=== PATIENT | male | born 1970 | race Asian ===

== ENCOUNTER 2019-09-03 15:40 | Observation (INO) | payer OTHER ==
--- NOTE | 2019-09-03 17:13 | Emergency Department Report ---
Chief Complaint: Chest Pain Stated Complaint: HBP/VOMITING/DIZZINESS Time Seen by Provider: 09/03/19 17:12 - HPI History of Present Illness: 49 y/o male p/w dizzyness, cp found to have right sided SOM Feels like right eye is not at its anatomic baseline. Right eye has trouble AB ducting past midline. Accu-Chek within normal limits. Also receiving physical therapy for DJD/musculoskeletal pain in the cervical spine. code stroke called over head nih 0 at this time Not a TPA candidate given low NIH score. Would consider CT angiogram head and neck to exclude posterior circulation dissection. Arch of aorta will also be visualized, therefore, in the unlikely event that the patient is experiencing an aortic dissection, this should be visualized. Vital Signs 09/03/19 17:13 Temperature 97.5 F L Pulse Rate 87 Respiratory 18 Rate Blood Pressure 167/109 O2 Sat by Pulse 100 Oximetry MSE screening note: Focused history and physical exam performed. Due to findings the following was ordered: ED Disposition for MSE Condition: Stable
--- NOTE | 2019-09-03 17:34 | Emergency Department Report ---
ED Neuro Deficit HPI - General Chief Complaint: Chest Pain Stated Complaint: HBP/VOMITING/DIZZINESS Time Seen by Provider: 09/03/19 17:12 Source: patient Mode of arrival: Wheelchair Limitations: No Limitations - History of Present Illness Initial Comments: [facility] Date of Service: 09/03/2019 17:14:30 Impression: RO Acute Ischemic Stroke Comments: the patient has had fluctuating sentences lightheadedness and vertigo since 8 AM in the context of hypertension. Diastolic is particularly high. At the present moment he has no focal symptoms or deficit. Differential includes hypertensive urgency, cardiac etiology, TIA. Metrics: Last Known Well: 09/03/2019 15:30:00 [facility] Notification Time: 09/03/2019 17:13:37 Arrival Time: 09/03/2019 15:40:00 Stamp Time: 09/03/2019 17:14:30 Time First Login Attempt: 09/03/2019 17:19:48 Video Start Time: 09/03/2019 17:19:48 Symptoms: light headedness NIHSS Start Assessment Time: 09/03/2019 17:22:29 Patient is not a candidate for tPA. Patient was not deemed candidate for tPA thrombolytics because of Resolved symptoms. Video End Time: 09/03/2019 17:31:42 CT head showed no acute hemorrhage or acute core infarct. Presentation is not suggestive of Large Vessel Occlusive disease. Advanced imaging was not obtained as the presentation was not suggestive of Large Vessel Occlusive Disease. ED Physician notified of diagnostic impression and management plan on 09/03/2019 17:31:44 Our recommendations are outlined below. Recommendations: Activate Stroke Protocol Admission/Order Set Stroke/Telemetry Floor Neuro Checks Bedside Swallow Eval DVT Prophylaxis IV Fluids, Normal Saline Head of Bed Below 30 Degrees Euglycemia and Avoid Hyperthermia (PRN Acetaminophen) Initiate Aspirin 325 MG Daily Recommended Scan: MRI Head Carotid Dopplers Echocardiogram - Transthoracic Echocardiogram Lipid Panel to Be Obtained, if Not Done in the Last Three Months Therapies: Physical Therapy, Occupational Therapy, Speech Therapy Assessment When Applicable Dysphaghia Screen: Swallow Evaluation, Bedside NPO Until Swallow Evaluation DVT prophylaxis: Choice of Primary Team Disposition: Follow up with Teleneurology Follow up Sign Out: Discussed with Emergency Department Provider History of Present Illness: Patient is a 49 year old Male. Patient was brought by private transportation with symptoms of light headedness He came in for a physical therapy appointment then became hot woosy and with some CP and was told his BP was really high. Has hx neck shoulder pain which is why he was getting PT. Takes asa 81 daily. He had vertigo that has since resolved. Since 8 am has had off and on vetigo with recurrence of symptoms at 15:30. CT head showed no acute hemorrhage or acute core infarct. Examination: BP(146/115), 1A: Level of Consciousness - Alert; keenly responsive + 0 1B: Ask Month and Age - Both Questions Right + 0 1C: Blink Eyes & Squeeze Hands - Performs Both Tasks + 0 2: Test Horizontal Extraocular Movements - Normal + 0 3: Test Visual Banuelos - No Visual Loss + 0 4: Test Facial Palsy (Use Grimace if Obtunded) - Normal symmetry + 0 5A: Test Left Arm Motor Drift - No Drift for 10 Seconds + 0 5B: Test Right Arm Motor Drift - No Drift for 10 Seconds + 0 6A: Test Left Leg Motor Drift - No Drift for 5 Seconds + 0 6B: Test Right Leg Motor Drift - No Drift for 5 Seconds + 0 7: Test Limb Ataxia (FNF/Heel-Adhikari) - No Ataxia + 0 8: Test Sensation - Normal; No sensory loss + 0 9: Test Language/Aphasia - Normal; No aphasia + 0 10: Test Dysarthria - Normal + 0 11: Test Extinction/Inattention - No abnormality + 0 NIHSS Score: 0 Patient was informed the Neurology Consult would happen via TeleHealth consult by way of interactive audio and video telecommunications and consented to receiving care in this manner. Due to the immediate potential for life-threatening deterioration due to underlying acute neurologic illness, I spent 35 minutes providing critical care. This time includes time for face to face visit via telemedicine, review of medical records, imaging studies and discussion of findings with providers, the patient and/or family. Dr Ileana Tomlinson [facility] - Related Data Allergies/Adverse Reactions: Allergies Allergy/AdvReac Type Severity Reaction Status Date / Time No Known Allergies Allergy Unverified 09/03/19 15:57 ED Review of Systems ROS: Stated complaint: HBP/VOMITING/DIZZINESS Other details as noted in HPI ED Past Medical Hx - Past Medical History Previous Medical History?: Yes Hx Hypertension: Yes Hx Arthritis: (DDD, DJD) - Surgical History Past Surgical History?: No - Social History Smoking Status: Never Smoker Substance Use Type: None ED Neuro Physical Exam - General Limitations: No Limitations Suspected Stroke: Yes - NIHSS Assessment Interval: Baseline 1a. Level of Consciousness: alert/keenly responsive 1b. LOC Questions: answers both correctly 1c. LOC Commands: performs tasks correctly 2. Best Gaze: normal 3. Visual: no visual loss 4. Facial Palsy: normal symmetrical movement 5b. Motor Arm Right: no drift 5a. Motor Arm Left: no drift 6a. Motor Leg Left: no drift 6b. Motor Leg Right: no drift 7. Limb Ataxia: absent 8. Sensory: normal 9. Best Language: no aphasia 10. Dysarthria: normal 11. Extinction/Inattention: no abnormality Total Score: 0 Stroke Severity: No Stroke Symptoms ED Course Vital Signs 09/03/19 17:13 Temperature 97.5 F L Pulse Rate 87 Respiratory 18 Rate Blood Pressure 167/109 O2 Sat by Pulse 100 Oximetry - Lab Data Lab Results 09/03/19 Range/Units 17:25 POC Glucose 111 H (70-105) Critical care attestation.: If time is entered above; I have spent that time in minutes in the direct care of this critically ill patient, excluding procedure time. ED Disposition Clinical Impression: TIA (transient ischemic attack) Disposition: OP ADMIT IP TO THIS HOSP Is pt being admited?: Yes Does the pt Need Aspirin: Yes Condition: Stable
--- NOTE | 2019-09-03 17:37 | Emergency Department Report ---
ED Chest Pain HPI - General Chief Complaint: Chest Pain Stated Complaint: HBP/VOMITING/DIZZINESS Time Seen by Provider: 09/03/19 17:20 Source: patient Mode of arrival: Wheelchair Limitations: No Limitations - History of Present Illness Initial Comments: She is a 49-year-old male that presents emergency room with complaints of dizziness, chest pain, nausea and shortness of breath. Patient states his symptoms started at 1530. Patient states that he has a history of hypertension. Patient states his chest pain is a 2 out of 10 and is a pressure. Patient states in the center of his chest and nonradiating. Patient states his shortness of breath and chest pain are better with rest and worse with exertion. Patient states all his symptoms started during exertion and have dramatically improved with rest. MD Complaint: chest pain -: Sudden Onset: during exertion Pain Location: substernal, left chest Pain Radiation: none Severity scale (0 -10): 2 Quality: pressure Consistency: constant Improves With: rest Worsens With: exertion re: nausea, dyspnea, other Other Symptoms: other. denies: cough, fever, syncope, rash, acid taste in mouth, leg swelling, palpitations, burping Treatments Prior to Arrival: none Aspirin use within the Past 7 Days: (1) Yes - Related Data On Oral Contraceptives: No Home Medications Medication Instructions Recorded Confirmed Last Taken Cyclobenzaprine [Flexeril 10 MG 2 tab PO DAILY 09/03/19 09/03/19 Unknown TAB] Fenofibrate Nanocrystallized 1 tab PO DAILY 09/03/19 09/03/19 Unknown [Fenofibrate] carvediloL [Coreg] 1 tab PO BID 09/03/19 09/03/19 Unknown hydroCHLOROthiazide [HCTZ] 1 tab PO DAILY 09/03/19 09/03/19 Unknown lisinopriL [Zestril TAB] 1 tab PO BID 09/03/19 09/03/19 Unknown Allergies Allergy/AdvReac Type Severity Reaction Status Date / Time No Known Allergies Allergy Verified 09/03/19 21:26 Heart Score - HEART Score History: Moderately suspicious EKG: Non-specific Age: 45-65 Risk factors: No known risk factors Troponin: < normal limit HEART Score: 3 ED Review of Systems ROS: Stated complaint: HBP/VOMITING/DIZZINESS Other details as noted in HPI Constitutional: denies: chills, fever Eyes: denies: eye pain, eye discharge, vision change ENT: denies: ear pain, throat pain Respiratory: shortness of breath. denies: cough, wheezing Cardiovascular: chest pain. denies: palpitations Endocrine: no symptoms reported Gastrointestinal: nausea. denies: abdominal pain, diarrhea Genitourinary: denies: urgency, dysuria Musculoskeletal: denies: back pain, joint swelling, arthralgia Skin: denies: rash, lesions Neurological: as per HPI, other. denies: headache, weakness, paresthesias Psychiatric: denies: anxiety, depression Hematological/Lymphatic: denies: easy bleeding, easy bruising ED Past Medical Hx - Past Medical History Previous Medical History?: Yes Hx Hypertension: Yes Hx Arthritis: (DDD, DJD) - Surgical History Past Surgical History?: No - Family History Family history: no significant - Social History Smoking Status: Never Smoker Substance Use Type: None - Medications Home Medications: Home Medications Medication Instructions Recorded Confirmed Last Taken Type Cyclobenzaprine [Flexeril 10 MG 2 tab PO DAILY 09/03/19 09/03/19 Unknown History TAB] Fenofibrate Nanocrystallized 1 tab PO DAILY 09/03/19 09/03/19 Unknown History [Fenofibrate] carvediloL [Coreg] 1 tab PO BID 09/03/19 09/03/19 Unknown History hydroCHLOROthiazide [HCTZ] 1 tab PO DAILY 09/03/19 09/03/19 Unknown History lisinopriL [Zestril TAB] 1 tab PO BID 09/03/19 09/03/19 Unknown History ED Physical Exam - General Limitations: No Limitations General appearance: alert, in no apparent distress - Head Head exam: Present: atraumatic, normocephalic - Eye Eye exam: Present: normal appearance - ENT ENT exam: Present: mucous membranes moist - Neck Neck exam: Present: normal inspection - Respiratory Respiratory exam: Present: normal lung sounds bilaterally. Absent: respiratory distress, wheezes - Cardiovascular Cardiovascular Exam: Present: regular rate, normal rhythm. Absent: systolic murmur, diastolic murmur, rubs, gallop - GI/Abdominal GI/Abdominal exam: Present: soft, normal bowel sounds - Rectal Rectal exam: Present: deferred - Extremities Exam Extremities exam: Present: normal inspection - Back Exam Back exam: Present: normal inspection - Neurological Exam Neurological exam: Present: alert, oriented X3 - Psychiatric Psychiatric exam: Present: normal affect, normal mood - Skin Skin exam: Present: warm, dry, intact, normal color. Absent: rash ED Course Vital Signs 09/03/19 09/03/19 09/03/19 17:13 17:24 17:57 Temperature 97.5 F L Pulse Rate 87 93 H Respiratory 18 18 18 Rate Blood Pressure 167/109 Blood Pressure 146/115 [Left] O2 Sat by Pulse 100 97 100 Oximetry 09/03/19 09/03/19 09/03/19 18:00 19:00 20:20 Temperature 98.3 F Pulse Rate 91 H 89 94 H Respiratory 18 18 14 Rate Blood Pressure Blood Pressure 161/108 135/74 137/99 [Left] O2 Sat by Pulse 97 97 97 Oximetry 09/03/19 09/03/19 09/03/19 20:30 21:00 21:30 Temperature Pulse Rate 84 79 77 Respiratory 16 14 14 Rate Blood Pressure 139/94 143/95 138/93 Blood Pressure [Left] O2 Sat by Pulse 98 98 97 Oximetry 09/03/19 09/03/19 09/03/19 22:00 22:30 22:40 Temperature Pulse Rate 95 H 83 85 Respiratory 16 16 14 Rate Blood Pressure 135/96 135/91 135/91 Blood Pressure [Left] O2 Sat by Pulse 96 96 98 Oximetry 09/03/19 09/03/19 09/03/19 22:50 23:00 23:10 Temperature Pulse Rate 87 79 82 Respiratory 17 16 19 Rate Blood Pressure 135/91 146/107 146/107 Blood Pressure [Left] O2 Sat by Pulse 97 97 99 Oximetry 09/03/19 23:20 Temperature Pulse Rate 81 Respiratory 17 Rate Blood Pressure 146/107 Blood Pressure [Left] O2 Sat by Pulse 98 Oximetry - Reevaluation(s) Reevaluation #1: Initial evaluation done. I discussed case with neurologist. Patient states his pain is improving. 09/03/19 17:37 - Consultations Consultation #1: I discussed case with our stroke team, neurology. Neurology does not recommend TPA. 09/03/19 17:31 Consultation #2: Hospitalist consultation for admission. Hospitalist to admit patient. 09/03/19 19:23 AMANDA score - Amanda Score Age > 65: (0) No (v) Aspirin use within the Past 7 Days: (1) Yes 3 or more CAD Risk Factors: (0) No 2 or more Angina events in past 24 hrs: (0) No Known CAD with more than 50% Stenosis: (0) No Elevated Cardiac Markers: (0) No ST Deviation Greater than 0.5mm: (0) No AMANDA Score: 1 ED Medical Decision Making - Lab Data Result diagrams: 09/03/19 17:52 09/03/19 19:31 - EKG Data -: EKG Interpreted by Me EKG shows normal: sinus rhythm, axis, intervals, QRS complexes, ST-T waves Rate: normal - Radiology Data Radiology results: report reviewed, image reviewed interpreted by me: No acute findings on chest x-ray. CT head/brain wo con INDICATION / CLINICAL INFORMATION: 49 years Male; Stroke symptoms. TECHNIQUE: Routine CT head without contrast. All CT scans at this location are performed using CT dose reduction for ALARA by means of automated exposure control. COMPARISON: None. FINDINGS: BRAIN / INTRACRANIAL CONTENTS: The brain appears to demonstrate appropriate attenuation for age. The ventricular system is within normal limits in size and configuration. The motion degrades image quality. However, there is no clear CT evidence of acute intracranial hemorrhage or significant mass effect. ORBITS: No significant abnormality of visualized orbits. SINUSES / MASTOIDS: No significant abnormality the visualized paranasal sinuses or mastoid air cells. CRANIOCERVICAL JUNCTION: No significant abnormality. ADDITIONAL FINDINGS: None. IMPRESSION: 1. There is no CT evidence of acute intracranial process. - Medical Decision Making H and is a 49-year-old L the patient's marginal complaints of dizziness, chest pain, shortness of breath and nausea. Patient's symptoms started while he was exerting himself physical therapy. Patient's blood pressure also went up. Patient's symptoms improved with rest. Due the patient's dizziness and symptoms a code stroke was called in triage. Neurology saw the patient. Patient's head CT is negative. Patient's labs unremarkable. Patient given aspirin immediately upon arrival due to his chest pain complaints. Patient will require admission for further evaluation and treatment. Patient will require an MRI for his possible TIA. - Differential Diagnosis TIA, ACS, CP, SOB, Critical Care Time: Yes Critical care time in (mins) excluding proc time.: 45 Critical care attestation.: If time is entered above; I have spent that time in minutes in the direct care of this critically ill patient, excluding procedure time. Critical Care Time: 45 minutes ED Disposition Clinical Impression: TIA (transient ischemic attack), Dizziness, SOB (shortness of breath) Chest pain Qualifiers: Chest pain type: unspecified Qualified Code(s): R07.9 - Chest pain, unspecified Disposition: 09 OP ADMIT IP TO THIS HOSP Is pt being admited?: Yes Does the pt Need Aspirin: No Condition: Good Time of Disposition: 21:00 - Assessment Assessment Interval: Baseline - Level of Consciousness 1a. Level of Consciousness: alert/keenly responsive - LOC Questions 1b. LOC Questions: answers both correctly - LOC Command 1c. LOC Commands: performs tasks correctly - Best Gaze 2. Best Gaze: normal - Visual 3. Visual: no visual loss - Facial Palsy 4. Facial Palsy: normal symmetrical movement - Motor Arm 5a. Motor Arm Left: no drift 5b. Motor Arm Right: no drift - Motor Leg 6a. Motor Leg Left: no drift 6b. Motor Leg Right: no drift - Limb Ataxia 7. Limb Ataxia: absent - Sensory 8. Sensory: normal - Best Language 9. Best Language: no aphasia - Dysarthria 10. Dysarthria: normal - Extinction and Inattention 11. Extinction/Inattention: no abnormality - Scoring Total Score: 0 Stroke Severity: No Stroke Symptoms
--- NOTE | 2019-09-03 17:43 | Cat Scan Report ---
CT head/brain wo con INDICATION / CLINICAL INFORMATION: 49 years Male; Stroke symptoms. TECHNIQUE: Routine CT head without contrast. All CT scans at this location are performed using CT dos e reduction for ALARA by means of automated exposure control. COMPARISON: None. FINDINGS: BRAIN / INTRACRANIAL CONTENTS: The brain appears to demonstrate appropriate attenuation for age. The ventricular system is within normal limits in size and configuration. The motion degrades image quali ty. However, there is no clear CT evidence of acute intracranial hemorrhage or significant mass effec t. ORBITS: No significant abnormality of visualized orbits. SINUSES / MASTOIDS: No significant abnormality the visualized paranasal sinuses or mastoid air cells. CRANIOCERVICAL JUNCTION: No significant abnormality. ADDITIONAL FINDINGS: None. IMPRESSION: 1. There is no CT evidence of acute intracranial process. The study was specified as code stroke and called emergently to Dr. Martinez in the ER at 4:35 PM Deandra tra standard time. Signer Name: Paulie Pacheco MD Signed: 09/03/2019 5:38 PM Workstation Name: [id number]
[2019-09-03 18:07] LABS: Basophils % (Auto) 0.3 % (0.0-1.8); Eosinophils # (Auto) 0.2 K/mm3 (0.0-0.4); Eosinophils % (Auto) 1.5 % (0.0-4.3); Hematocrit 40.4 % (35.5-45.6); Hemoglobin 13.6 gm/dl (11.8-15.2); Lymphocytes # (Auto) 1.5 K/mm3 (1.2-5.4); Lymphocytes % (Auto) 15.6 % (13.4-35.0); Mean Corpuscular HGB Conc 34 % (32-34); Mean Corpuscular Volume 83 fl (84-94); Monocytes # (Auto) 0.5 K/mm3 (0.0-0.8); Monocytes % (Auto) 4.7 % (0.0-7.3); Platelet Count 296 K/mm3 (140-440); Red Blood Count 4.85 M/mm3 (3.65-5.03); Red Cell Distribution Width 14.6 % (13.2-15.2)
[2019-09-03 18:24] LABS: Creatine Kinase MB 1.2 ng/mL (0.0-4.0)
[2019-09-03 18:38] LABS: INR 0.96 (0.87-1.13)
[2019-09-03] MEDS ORDERED: ASPIRIN 325 MG TAB PO ONE (19:03)
--- NOTE | 2019-09-03 19:03 | XRay Report ---
CHEST 1 VIEW 6:43 PM INDICATION / CLINICAL INFORMATION: Chest pain. COMPARISON: None available. FINDINGS: SUPPORT DEVICES: None. HEART / MEDIASTINUM: The heart size and pulmonary vasculature are normal. The aorta is normal in iram toña. LUNGS / PLEURA: No significant pulmonary or pleural abnormality. No pneumothorax. ADDITIONAL FINDINGS: No significant additional findings. IMPRESSION: No acute findings. Signer Name: Pietro Powell MD Signed: 09/03/2019 6:58 PM Workstation Name: [id number]
[2019-09-03] MEDS ORDERED: MORPHINE 2 MG/1 ML INJ IV ONE (19:04)
[2019-09-03 20:34] LABS: Alanine Aminotransferase 40 units/L (7-56); Albumin 4.1 g/dL (3.9-5); BUN/Creatinine Ratio 12; Blood Urea Nitrogen 11 mg/dL (9-20); Calcium 9.8 mg/dL (8.4-10.2); Hemolysis Index 2
[2019-09-03] MEDS ORDERED: ACETAMINOPHEN 325 MG TAB PO PRN (21:12)
[2019-09-03] MEDS ORDERED: ONDANSETRON 4 MG/2 ML INJ IV PRN (21:12)
[2019-09-03] MEDS ORDERED: NITROGLYCERIN 0.4 MG TAB SUBL SL PRN (21:15)
[2019-09-03] MEDS ORDERED: hydrALAZINE 20 MG/1 ML INJ IV PRN (21:15)
--- NOTE | 2019-09-03 21:36 | History and Physical Report ---
History of Present Illness Date of examination: 09/03/19 Date of admission: 09/03/2019 Chief complaint: Chest pain History of present illness: Patient is a 49-year-old male with a past medical history of hypertension and chronic pain who presents to ER with complaints of chest pain. Patient reports he arrived at physical therapy this am and reports onset of sweats, after taking his vitals he was brought down to the emergency room with an elevated blood pressure, and code stroke was called on his arrival. Patient was seen and evaluated by tele neurology. Patient reports his chest pain is 4 out of 10, without radiation and accompanied by nausea, sweats and dizziness. His chest pain is better with rest, and exacerbated with exertion during therapy. He denies pain, n/v during assessment. Past History Past Medical History: hypertension Past Surgical History: Other Social history: , lives with family Family history: CAD, cancer, diabetes Medications and Allergies Allergies Allergy/AdvReac Type Severity Reaction Status Date / Time No Known Allergies Allergy Verified 09/03/19 21:26 Home Medications Medication Instructions Recorded Confirmed Last Taken Type Cyclobenzaprine [Flexeril 10 MG 2 tab PO DAILY 09/03/19 09/03/19 Unknown History TAB] Fenofibrate Nanocrystallized 1 tab PO DAILY 09/03/19 09/03/19 Unknown History [Fenofibrate] carvediloL [Coreg] 1 tab PO BID 09/03/19 09/03/19 Unknown History hydroCHLOROthiazide [HCTZ] 1 tab PO DAILY 09/03/19 09/03/19 Unknown History lisinopriL [Zestril TAB] 1 tab PO BID 09/03/19 09/03/19 Unknown History Active Meds: Active Medications Acetaminophen (Tylenol) 650 mg PO Q4H PRN PRN Reason: Pain MILD(1-3)/Fever >100.5/MORATAYA Aspirin (Ecotrin) 325 mg PO QDAY ANGEL Atorvastatin Calcium (Lipitor) 40 mg PO QHS ANGEL Bisacodyl (Dulcolax) 10 mg [place] QDAY PRN PRN Reason: Constipation Hydralazine HCl (Apresoline) 10 mg IV ONCE PRN PRN Reason: Hypertension Sodium Chloride (Nacl 0.9% 1000 Ml) 1,000 mls @ 125 mls/hr IV DIRECT ANGEL Morphine Sulfate (Morphine) 2 mg IV Q4H PRN PRN Reason: Pain, Moderate (4-6) Nitroglycerin (Nitrostat) 0.4 mg SL .Q5MIN PRN PRN Reason: Chest Pain Ondansetron HCl (Zofran) 4 mg IV Q8H PRN PRN Reason: Nausea And Vomiting Review of Systems All systems: negative Cardiovascular: chest pain, lightheadedness, high blood pressure Neurological: headaches Exam - Physical Exam Narrative exam: - Physical Exam Narrative exam: General appearance: Present: No distress noted - EENT Eyes: Present: PERRL ENT: hearing intact, clear oral mucosa - Neck Neck: Present: supple, normal ROM - Respiratory Respiratory effort: normal Respiratory: bilateral: Clear to auscultation - Cardiovascular Heart rate:84 Heart Sounds: Present: S1 & S2. Absent: rub, click - Extremities Extremities: pulses symmetrical, No edema Peripheral Pulses: within normal limits - Abdominal General gastrointestinal: Present: , non-distended, normal bowel sounds genitourinary: Present: normal - Integumentary Integumentary: Present: clear, warm, dry - Musculoskeletal Musculoskeletal: gait normal, strength equal bilaterally - Psychiatric Psychiatric: appropriate mood/affect, intact judgment & insight - Neurologic Neurologic: CNII-XII intact, moves all extremities - Constitutional Vitals: Temp Pulse Resp BP Pulse Ox 98.3 F 77 14 138/93 97 09/03/19 20:20 09/03/19 21:30 09/03/19 21:30 09/03/19 21:30 09/03/19 21:30 AMANDA score - Amanda Score Age > 65: (0) No (v) Aspirin use within the Past 7 Days: (1) Yes 3 or more CAD Risk Factors: (0) No 2 or more Angina events in past 24 hrs: (0) No Known CAD with more than 50% Stenosis: (0) No Elevated Cardiac Markers: (0) No ST Deviation Greater than 0.5mm: (0) No AMANDA Score: 1 Results - Labs CBC & Chem 7: 09/03/19 17:52 09/03/19 19:31 Labs: Laboratory Last Values WBC 9.9 K/mm3 (4.5-11.0) 09/03/19 17:52 RBC 4.85 M/mm3 (3.65-5.03) 09/03/19 17:52 Hgb 13.6 gm/dl (11.8-15.2) 09/03/19 17:52 Hct 40.4 % (35.5-45.6) 09/03/19 17:52 MCV 83 fl (84-94) L 09/03/19 17:52 MCH 28 pg (28-32) 09/03/19 17:52 MCHC 34 % (32-34) 09/03/19 17:52 RDW 14.6 % (13.2-15.2) 09/03/19 17:52 Plt Count 296 K/mm3 (140-440) 09/03/19 17:52 Lymph % (Auto) 15.6 % (13.4-35.0) 09/03/19 17:52 [place] % (Auto) 4.7 % (0.0-7.3) 09/03/19 17:52 Eos % (Auto) 1.5 % (0.0-4.3) 09/03/19 17:52 Baso % (Auto) 0.3 % (0.0-1.8) 09/03/19 17:52 Lymph # 1.5 K/mm3 (1.2-5.4) 09/03/19 17:52 [place] # 0.5 K/mm3 (0.0-0.8) 09/03/19 17:52 Eos # 0.2 K/mm3 (0.0-0.4) 09/03/19 17:52 Baso # 0.0 K/mm3 (0.0-0.1) 09/03/19 17:52 Seg Neutrophils % 77.9 % (40.0-70.0) H 09/03/19 17:52 Seg Neutrophils # 7.7 K/mm3 (1.8-7.7) 09/03/19 17:52 PT 12.9 Sec. (12.2-14.9) 09/03/19 17:52 INR 0.96 (0.87-1.13) 09/03/19 17:52 APTT 24.0 Sec. (24.2-36.6) L 09/03/19 17:52 Thrombin Time 17.0 Sec. (15.1-19.6) 09/03/19 17:52 Sodium 142 mmol/L (137-145) 09/03/19 19:31 Potassium 3.6 mmol/L (3.6-5.0) 09/03/19 19:31 Chloride 103.7 mmol/L (98-107) 09/03/19 19:31 Carbon Dioxide 21 mmol/L (22-30) L 09/03/19 19:31 Anion Gap 21 mmol/L 09/03/19 19:31 BUN 11 mg/dL (9-20) 09/03/19 19:31 Creatinine 0.9 mg/dL (0.8-1.5) 09/03/19 19:31 Estimated GFR > 60 ml/min 09/03/19 19:31 BUN/Creatinine Ratio 12 % 09/03/19 19:31 Glucose 141 mg/dL (75-100) H 09/03/19 19:31 POC Glucose 134 (70-105) H 09/03/19 17:42 Calcium 9.8 mg/dL (8.4-10.2) 09/03/19 19:31 Total Bilirubin 0.40 mg/dL (0.1-1.2) 09/03/19 19:31 AST 21 units/L (5-40) 09/03/19 19:31 ALT 40 units/L (7-56) 09/03/19 19:31 Alkaline Phosphatase 73 units/L (35-129) 09/03/19 19:31 Total Creatine Kinase 108 units/L (55-170) 09/03/19 17:52 CK-MB (CK-2) 1.2 ng/mL (0.0-4.0) 09/03/19 17:52 CK-MB (CK-2) Rel Index 1.1 (0-4) 09/03/19 17:52 Troponin T < 0.010 ng/mL (0.00-0.029) 09/03/19 17:52 Total Protein 7.7 g/dL (6.3-8.2) 09/03/19 19:31 Albumin 4.1 g/dL (3.9-5) 09/03/19 19:31 Albumin/Globulin Ratio 1.1 % 09/03/19 19:31 Plasma/Serum Alcohol < 0.01 % (0-0.07) 09/03/19 17:52 - Imaging and Cardiology EKG: report reviewed (Sinus rhythm) Chest x-ray: report reviewed (IMPRESSION: No acute findings.) CT Scan - head: report reviewed (There is no CT evidence of acute intracranial process.) Assessment and Plan Assessment and plan: Acute Chest Pain -C/o chest pain without radiation -Initiate chest pain protocol -Continuous telemetry monitoring -Continue supportive care -Pain mgmt -EKG unrevealing for acute ischemic abnormalities -Cardiology consulted R/O TIA -CT Head negative -Tele-Neurology consulted; recommendations appreciated -MRI brain pending -Neuro Checks -Lipid panel pending -Continue statin -Neurology consulted HTN -Monitor BP -Resume home meds once reconciled DVT PPX -pt ambulatory -heparin ppx Advance Directives: No VTE prophylaxis?: Chemical
[2019-09-04 05:34] LABS: Basophils % (Auto) 0.5 % (0.0-1.8); Eosinophils # (Auto) 0.2 K/mm3 (0.0-0.4); Eosinophils % (Auto) 2.9 % (0.0-4.3); Hematocrit 38.7 % (35.5-45.6); Hemoglobin 13.1 gm/dl (11.8-15.2); Lymphocytes # (Auto) 2.6 K/mm3 (1.2-5.4); Lymphocytes % (Auto) 34.7 % (13.4-35.0); Mean Corpuscular HGB Conc 34 % (32-34); Mean Corpuscular Volume 83 fl (84-94); Monocytes # (Auto) 0.5 K/mm3 (0.0-0.8); Monocytes % (Auto) 7.4 % (0.0-7.3); Platelet Count 277 K/mm3 (140-440); Red Blood Count 4.65 M/mm3 (3.65-5.03); Red Cell Distribution Width 14.3 % (13.2-15.2)
[2019-09-04 06:08] LABS: BUN/Creatinine Ratio 13; Blood Urea Nitrogen 13 mg/dL (9-20); Calcium 9.4 mg/dL (8.4-10.2); Chol/HDL Ratio 6.67 %; HDL Cholesterol 31 mg/dL (40-59); Hemolysis Index 4; LDL Cholesterol,Direct 146 mg/dL (50-130)
[2019-09-04] MEDS ORDERED: REGADENOSON 0.4 MG/5 ML INJ IV ONE ×2 (08:57→09:04)
[2019-09-04] MEDS ORDERED: ALPRAZolam 0.25 MG TAB PO SCH (09:00)
[2019-09-04] MEDS ORDERED: LORazepam 2 MG/ML VIAL IV ONE (09:30)
--- NOTE | 2019-09-04 11:00 | Progress Note ---
Assessment and Plan Assessment and plan: Acute Chest Pain -continue chest pain protocol -Continuous telemetry monitoring -Cardiology consulted R/O TIA -CT Head negative -Tele-Neurology consulted; recommendations appreciated -MRI brain pending -Neuro Checks -Lipid panel pending -Continue statin -Neurology consulted HTN -Monitor BP -Resume home meds once reconciled DVT PPX -pt ambulatory -heparin ppx History Interval history: No new issues overnight. Hospitalist Physical - Constitutional Vitals: Temp Pulse Resp BP Pulse Ox 98.4 F 100 H 18 127/93 96 09/04/19 04:07 09/04/19 09:51 09/04/19 04:07 09/04/19 04:07 09/04/19 08:21 General appearance: Present: no acute distress, well-nourished - EENT Eyes: Present: PERRL, EOM intact ENT: hearing intact, clear oral mucosa, dentition normal - Neck Neck: Present: supple, normal ROM - Respiratory Respiratory effort: normal Respiratory: bilateral: CTA - Cardiovascular Rhythm: regular Heart Sounds: Present: S1 & S2. Absent: gallop, rub - Extremities Extremities: no ischemia, No edema, Full ROM - Abdominal General gastrointestinal: soft, non-tender, non-distended, normal bowel sounds - Integumentary Integumentary: Present: clear, warm, dry - Neurologic Neurologic: CNII-XII intact, moves all extremities AMANDA score - Amanda Score Age > 65: (0) No (v) Aspirin use within the Past 7 Days: (1) Yes 3 or more CAD Risk Factors: (0) No 2 or more Angina events in past 24 hrs: (0) No Known CAD with more than 50% Stenosis: (0) No Elevated Cardiac Markers: (0) No ST Deviation Greater than 0.5mm: (0) No AMANDA Score: 1 Results - Labs CBC & Chem 7: 09/04/19 04:44 09/04/19 04:44 Labs: Laboratory Last Values WBC 7.4 K/mm3 (4.5-11.0) 09/04/19 04:44 RBC 4.65 M/mm3 (3.65-5.03) 09/04/19 04:44 Hgb 13.1 gm/dl (11.8-15.2) 09/04/19 04:44 Hct 38.7 % (35.5-45.6) 09/04/19 04:44 MCV 83 fl (84-94) L 09/04/19 04:44 MCH 28 pg (28-32) 09/04/19 04:44 MCHC 34 % (32-34) 09/04/19 04:44 RDW 14.3 % (13.2-15.2) 09/04/19 04:44 Plt Count 277 K/mm3 (140-440) 09/04/19 04:44 Lymph % (Auto) 34.7 % (13.4-35.0) 09/04/19 04:44 [place] % (Auto) 7.4 % (0.0-7.3) H 09/04/19 04:44 Eos % (Auto) 2.9 % (0.0-4.3) 09/04/19 04:44 Baso % (Auto) 0.5 % (0.0-1.8) 09/04/19 04:44 Lymph # 2.6 K/mm3 (1.2-5.4) 09/04/19 04:44 [place] # 0.5 K/mm3 (0.0-0.8) 09/04/19 04:44 Eos # 0.2 K/mm3 (0.0-0.4) 09/04/19 04:44 Baso # 0.0 K/mm3 (0.0-0.1) 09/04/19 04:44 Seg Neutrophils % 54.5 % (40.0-70.0) 09/04/19 04:44 Seg Neutrophils # 4.0 K/mm3 (1.8-7.7) 09/04/19 04:44 PT 12.9 Sec. (12.2-14.9) 09/03/19 17:52 INR 0.96 (0.87-1.13) 09/03/19 17:52 APTT 24.0 Sec. (24.2-36.6) L 09/03/19 17:52 Thrombin Time 17.0 Sec. (15.1-19.6) 09/03/19 17:52 Sodium 143 mmol/L (137-145) 09/04/19 04:44 Potassium 3.4 mmol/L (3.6-5.0) L 09/04/19 04:44 Chloride 104.4 mmol/L (98-107) 09/04/19 04:44 Carbon Dioxide 24 mmol/L (22-30) 09/04/19 04:44 Anion Gap 18 mmol/L 09/04/19 04:44 BUN 13 mg/dL (9-20) 09/04/19 04:44 Creatinine 1.0 mg/dL (0.8-1.5) 09/04/19 04:44 Estimated GFR > 60 ml/min 09/04/19 04:44 BUN/Creatinine Ratio 13 % 09/04/19 04:44 Glucose 150 mg/dL (75-100) H 09/04/19 04:44 POC Glucose 134 (70-105) H 09/03/19 17:42 Calcium 9.4 mg/dL (8.4-10.2) 09/04/19 04:44 Total Bilirubin 0.40 mg/dL (0.1-1.2) 09/03/19 19:31 AST 21 units/L (5-40) 09/03/19 19:31 ALT 40 units/L (7-56) 09/03/19 19:31 Alkaline Phosphatase 73 units/L (35-129) 09/03/19 19:31 Total Creatine Kinase 108 units/L (55-170) 09/03/19 17:52 CK-MB (CK-2) 1.2 ng/mL (0.0-4.0) 09/03/19 17:52 CK-MB (CK-2) Rel Index 1.1 (0-4) 09/03/19 17:52 Troponin T < 0.010 ng/mL (0.00-0.029) 09/04/19 00:31 Total Protein 7.7 g/dL (6.3-8.2) 09/03/19 19:31 Albumin 4.1 g/dL (3.9-5) 09/03/19 19:31 Albumin/Globulin Ratio 1.1 % 09/03/19 19:31 Triglycerides 250 mg/dL (2-149) H 09/04/19 04:44 Cholesterol 207 mg/dL (50-199) H 09/04/19 04:44 LDL Cholesterol Direct 146 mg/dL (50-130) H 09/04/19 04:44 HDL Cholesterol 31 mg/dL (40-59) L 09/04/19 04:44 Cholesterol/HDL Ratio 6.67 % 09/04/19 04:44 Plasma/Serum Alcohol < 0.01 % (0-0.07) 09/03/19 17:52 Active Medications - Current Medications Current Medications: Generic Name Dose Route Start Last Admin Trade Name Freq PRN Reason Stop Dose Admin Acetaminophen 650 mg 09/03/19 21:12 Tylenol PO Q4H PRN Pain MILD(1-3)/Fever >100.5/MORATAYA Aspirin 325 mg 09/04/19 10:00 Ecotrin PO QDAY ANGEL Atorvastatin Calcium 40 mg 09/03/19 22:00 09/03/19 22:33 Lipitor PO 40 mg QHS ANGEL Administration Bisacodyl 10 mg 09/03/19 21:15 Dulcolax [place] QDAY PRN Constipation Heparin Sodium (Porcine) 5,000 unit 09/04/19 10:00 Heparin SUB-Q Q12HR ANGEL Hydralazine HCl 10 mg 09/03/19 21:15 Apresoline IV ONCE PRN Hypertension Sodium Chloride 1,000 mls @ 125 mls/hr 09/03/19 21:15 Nacl 0.9% 1000 Ml IV DIRECT ANGEL Morphine Sulfate 2 mg 09/03/19 21:12 Morphine IV Q4H PRN Pain, Moderate (4-6) Nitroglycerin 0.4 mg 09/03/19 21:15 Nitrostat SL .Q5MIN PRN Chest Pain Ondansetron HCl 4 mg 09/03/19 21:12 Zofran IV Q8H PRN Nausea And Vomiting
--- NOTE | 2019-09-04 11:18 | Consultation ---
History of Present Illness Consult date: 09/04/19 Requesting physician: RODRIGO OGLESBY Consult reason: chest pain History of present illness: Pt is a 49 y.o. male with a hx of HTN and generalized back/shoulder pain (currently undergoing PT). He is previously unknown to our practice. He presented with complaints of a headache, vertigo, diaphoresis, nausea, and chest pain. He awoke yesterday in his normal state of health and was driving to work around 7am when he noted the onset of headache, vertigo, and diaphoresis. He stated that he felt better after drinking some water upon arrival at work. He then went to a scheduled PT appointment around 3pm, and before beginning PT, he noted the onset of his previous sx, as well as CP. He describes his CP as non- radiating midsternal clenching/tightness, which resolved after arrival at ER. Of note, pt states that he forgot to take his BP meds yesterday morning and was noted to be hypertensive at PT office. He had no reoccurrence of his sx overnight. He denies any palpitations, vomiting, dizziness, or syncope. Past History Past Medical History: hypertension, other (Unspecified back and shoulder pain (currently undergoing PT)) Past Surgical History: Other (Cyst removal from back) Social history: , lives with family Family history: CAD, cancer, diabetes Medications and Allergies Allergies Allergy/AdvReac Type Severity Reaction Status Date / Time No Known Allergies Allergy Verified 09/03/19 21:26 Home Medications Medication Instructions Recorded Confirmed Last Taken Type Cyclobenzaprine [Flexeril 10 MG 2 tab PO DAILY 09/03/19 09/03/19 Unknown History TAB] Fenofibrate Nanocrystallized 1 tab PO DAILY 09/03/19 09/03/19 Unknown History [Fenofibrate] carvediloL [Coreg] 1 tab PO BID 09/03/19 09/03/19 Unknown History hydroCHLOROthiazide [HCTZ] 1 tab PO DAILY 09/03/19 09/03/19 Unknown History lisinopriL [Zestril TAB] 1 tab PO BID 09/03/19 09/03/19 Unknown History Active Meds: Active Medications Acetaminophen (Tylenol) 650 mg PO Q4H PRN PRN Reason: Pain MILD(1-3)/Fever >100.5/MORATAYA Aspirin (Ecotrin) 325 mg PO QDAY [facility] Atorvastatin Calcium (Lipitor) 40 mg PO QHS [facility] Last Admin: 09/03/19 22:33 Dose: 40 mg Documented by: Bisacodyl (Dulcolax) 10 mg [place] QDAY PRN PRN Reason: Constipation Heparin Sodium (Porcine) (Heparin) 5,000 unit SUB-Q Q12HR [facility] Hydralazine HCl (Apresoline) 10 mg IV ONCE PRN PRN Reason: Hypertension Sodium Chloride (Nacl 0.9% 1000 Ml) 1,000 mls @ 125 mls/hr IV DIRECT ANGEL Morphine Sulfate (Morphine) 2 mg IV Q4H PRN PRN Reason: Pain, Moderate (4-6) Nitroglycerin (Nitrostat) 0.4 mg SL .Q5MIN PRN PRN Reason: Chest Pain Ondansetron HCl (Zofran) 4 mg IV Q8H PRN PRN Reason: Nausea And Vomiting Review of Systems Constitutional: sweats, no fever, no chills Ears, nose, mouth and throat: no ear pain, no tinnitis, no nasal congestion, no sore throat Cardiovascular: lightheadedness, dyspnea on exertion, no chest pain, no orth opnea, no palpitations, no edema, no shortness of breath Respiratory: dyspnea on exertion, no cough, no shortness of breath Gastrointestinal: no abdominal pain, no nausea, no vomiting, no diarrhea, no constipation Genitourinary Male: no dysuria Musculoskeletal: no muscle weakness, no muscle cramps Integumentary: no rash, no wounds, no lesions Neurological: vertigo, headaches, no paralysis, no weakness, no parathesias, no numbness, no seizures, no syncope, no change in mentation Endocrine: no cold intolerance, no heat intolerance Hematologic/Lymphatic: no easy bruising, no easy bleeding Allergic/Immunologic: no urticaria Physical Examination Last Vital Signs Temp 97.4 F L 09/04/19 07:50 Pulse 100 H 09/04/19 09:51 Resp 18 09/04/19 07:50 BP 140/102 09/04/19 10:35 Pulse Ox 96 09/04/19 08:21 General appearance: no acute distress HEENT: Positive: PERRL, Normocephaly, Mucus Membranes Moist Neck: Positive: neck supple, trachea midline Cardiac: Positive: Reg Rate and Rhythm, S1/S2 Lungs: Positive: clear to auscultation, No Wheeze, Rales, Rhonchi Neuro: Positive: Grossly Intact, Cranial Nerve 2-12 Intact, Motor Function I ntact, Coordination Normal, Sensory Function Intact Abdomen: Positive: Soft, Active Bowel Sounds. Negative: Tender Skin: Negative: Rash, Suspicious Lesions, Wound Musculoskeletal: No Fluid Collection, No Pain, Normal Range of Motion Extremities: Present: normal, upper extr. pulses, lower extr. pulses. Absent: edema Results 09/04/19 04:44 09/04/19 04:44 Cardiac Enzymes 09/03/19 09/03/19 Range/Units 17:52 19:31 AST 21 (5-40) units/L CK-MB (CK-2) 1.2 (0.0-4.0) ng/mL Coagulation 09/03/19 Range/Units 17:52 PT 12.9 (12.2-14.9) Sec. INR 0.96 (0.87-1.13) APTT 24.0 L (24.2-36.6) Sec. Lipids 09/04/19 Range/Units 04:44 Triglycerides 250 H (2-149) mg/dL Cholesterol 207 H (50-199) mg/dL HDL Cholesterol 31 L (40-59) mg/dL Cholesterol/HDL Ratio 6.67 % CBC 09/03/19 09/04/19 Range/Units 17:52 04:44 WBC 9.9 7.4 (4.5-11.0) K/mm3 RBC 4.85 4.65 (3.65-5.03) M/mm3 Hgb 13.6 13.1 (11.8-15.2) gm/dl Hct 40.4 38.7 (35.5-45.6) % Plt Count 296 277 (140-440) K/mm3 Lymph # 1.5 2.6 (1.2-5.4) K/mm3 [place] # 0.5 0.5 (0.0-0.8) K/mm3 Eos # 0.2 0.2 (0.0-0.4) K/mm3 Baso # 0.0 0.0 (0.0-0.1) K/mm3 Comprehensive Metabolic Panel 09/03/19 09/04/19 Range/Units 19:31 04:44 Sodium 142 143 (137-145) mmol/L Potassium 3.6 3.4 L (3.6-5.0) mmol/L Chloride 103.7 104.4 (98-107) mmol/L Carbon Dioxide 21 L 24 (22-30) mmol/L BUN 11 13 (9-20) mg/dL Creatinine 0.9 1.0 (0.8-1.5) mg/dL Glucose 141 H 150 H (75-100) mg/dL Calcium 9.8 9.4 (8.4-10.2) mg/dL AST 21 (5-40) units/L ALT 40 (7-56) units/L Alkaline Phosphatase 73 (35-129) units/L Total Protein 7.7 (6.3-8.2) g/dL Albumin 4.1 (3.9-5) g/dL - Imaging and Cardiology Echo: pending EKG: report reviewed, image reviewed - EKG Interpretation EKG: no acute changes EKG interpretations - Telemetry EKG Rhythm: Sinus Rhythm - EKG Sinus rhythms and dysrhythmias: sinus tachycardia Assessment and Plan S/p nuclear stress test this AM, which was negative. Resume home anithypertensive regimen - HCTZ, Lisinopril, Carvedilol. Initiate statin therapy. Currently stable cardiac status. CP currently resolved. Pt may discharge from Cardiology standpoint. Recommend f/u in our office with Dr. Kirkpatrick within 1-2 weeks ([phone]). The patient has been seen in conjunction with Dr. Kirkpatrick, who agrees with the assessment and plan of care. - Patient Problems (1) TIA (transient ischemic attack) Current Visit: Yes Status: Suspected Plan to address problem: Neurology consulted. (2) Chest pain Current Visit: Yes Status: Resolved Qualifiers: Chest pain type: unspecified Qualified Code(s): R07.9 - Chest pain, unspecified (3) Vertigo Current Visit: Yes Status: Acute (4) Accelerated hypertension Current Visit: Yes Status: Acute (5) Hyperlipidemia Current Visit: Yes Status: Chronic Plan to address problem: New dx.
--- NOTE | 2019-09-04 11:42 | Treadmill Report ---
LEXISCAN STRESS TEST REPORT REASON FOR STUDY: Chest pain. STRESS TEST PROTOCOL: The patient received 0.4 mg of Lexiscan intravenously over 10 seconds. Tc-99m Tetrofosmin was subsequently injected. Baseline ECG:normal sinus rhythm. Lexiscan ECG: no ischemic changes. No chest pain. No arrhythmias. IMPRESSION: Electrocardiographically negative stress test. Nuclear imaging report to follow. JOB# [id number] KETAN/DIANA BELL
[2019-09-04] MEDS: HEPARIN 5,000 UNIT/1 ML VIAL SUB-Q SCH ×2 (13:12→22:03)
[2019-09-04] MEDS: ASPIRIN EC 325 MG TAB PO SCH (13:12)
[2019-09-04] MEDS: MORPHINE 2 MG/1 ML INJ IV PRN (13:15)
--- NOTE | 2019-09-04 13:29 | Treadmill Report ---
THALLIUM REPORT REASON FOR STUDY: Chest pain. IMAGING PROTOCOL: The patient received 10 mCi of Tc-99m Tetrofosmin for rest imaging, and 28 mCi of Tc-99m Tetrofosmin for stress imaging. Imaging for all procedures was completed 30-90 minutes following the initial injection of Technetium 99m Tetrofosmin. SPECT imaging in the 180 degree arc was performed in the right anterior oblique projection. Computerized reconstruction of the images was performed for analysis. NUCLEAR IMAGING RESULTS: Normal left ventricular cavity size with no change from stress to rest. Distribution of radionuclide within the left ventricle revealed normal myocardial photon uptake with stress and rest imaging. Gated SPECT imaging revealed normal global LV systolic function with no significant wall motion abnormalities. The calculated left ventricular ejection fraction is 70%. IMPRESSION: Normal stress and rest myocardial perfusion imaging. Normal global LV systolic function with no significant wall motion abnormalities. EF of 70%. No evidence of significant stress-induced ischemia or prior infarction. JOB# [id number] KETAN/DIANA
--- NOTE | 2019-09-04 14:39 | Vascular Lab Report ---
"DUPLEX DOPPLER ULTRASOUND CAROTID, BILATERAL INDICATION: tia. FINDINGS: RIGHT CAROTID: No significant atherosclerotic plaque. Right ICA peak systolic velocity: 69 cm/sec. Right Vertebral Artery: Antegrade flow. LEFT CAROTID: No significant atherosclerotic plaque. Left ICA peak systolic velocity: 82 cm/sec. Left Vertebral Artery: Antegrade flow. IMPRESSION: 1. Right Internal Carotid Artery: Less than 50% diameter stenosis. 2. Left Internal Carotid Artery: Less than 50% diameter stenosis. Velocity criteria are extrapolated from diameter data as defined by the Society of Radiologists in [facility] Consensus Conference, Radiology 2003; 229;340-346. Degree of Stenosis (%) || ICA PSV (cm/sec) || Plaque estimate (%) || ICA/CCA PSV Ratio Normal <125 None <2.0 <50 <125 <50 <2.0 50-69 125-230 50 2.0-4.0 70 but less than 100 >230 50 >4.0 Near occlusion High, low, or none visible variable Total occlusion None visible; no lumen N/A Signer Name: Master Gilbert MD Signed: 09/04/2019 2:35 PM Workstation Name: [id number]
--- NOTE | 2019-09-04 14:53 | Consultation ---
History of Present Illness Consult date: 09/04/19 Reason for Consult: vertigo and left side numbness History of present illness: Patient is a 49-year-old male with a past medical history of hypertension and chronic pain who presents to ER with complaints of chest pain. Patient re samanthas he arrived at physical therapy this am and reports onset of sweats, after taking his vitals he was brought down to the emergency room with an elevated blood pressure 167/109, and code stroke was called on his arrival. Patient was seen and evaluated by tele neurology. Patient reports his chest pain is 4 out of 10, without radiation and accompanied by nausea, sweats and dizziness. His chest pain is better with rest, and exacerbated with exertion during therapy. He denies pain, n/v during assessment. According to pt. he is with long standing hx of neck pain radiate to left arm and chest on going for over 6 months he was evaluated by his PCP treated with flexeril he does not smoke or drink Past History Past Medical History: hypertension Past Surgical History: Other Social history: , lives with family Family history: CAD, cancer, diabetes Past History Past Medical History: hypertension, other (Unspecified back and shoulder pain (currently undergoing PT)) Past Surgical History: Other (Cyst removal from back) Social history: , lives with family Family history: CAD, cancer, diabetes Medications and Allergies Allergies Allergy/AdvReac Type Severity Reaction Status Date / Time No Known Allergies Allergy Verified 09/03/19 21:26 Home Medications Medication Instructions Recorded Confirmed Last Taken Type Fenofibrate Nanocrystallized 1 tab PO DAILY 09/03/19 09/03/19 Unknown History [Fenofibrate] carvediloL [Coreg] 1 tab PO BID 09/03/19 09/03/19 Unknown History hydroCHLOROthiazide [HCTZ] 1 tab PO DAILY 09/03/19 09/03/19 Unknown History lisinopriL [Zestril TAB] 1 tab PO BID 09/03/19 09/03/19 Unknown History Active Meds: Active Medications Acetaminophen (Tylenol) 650 mg PO Q4H PRN PRN Reason: Pain MILD(1-3)/Fever >100.5/MORATAYA Aspirin (Ecotrin) 325 mg PO QDAY [facility] Last Admin: 09/04/19 13:12 Dose: 325 mg Documented by: Atorvastatin Calcium (Lipitor) 40 mg PO QHS [facility] Last Admin: 09/03/19 22:33 Dose: 40 mg Documented by: Bisacodyl (Dulcolax) 10 mg IN QDAY PRN PRN Reason: Constipation Heparin Sodium (Porcine) (Heparin) 5,000 unit SUB-Q Q12HR [facility] Last Admin: 09/04/19 13:12 Dose: Not Given Documented by: Hydralazine HCl (Apresoline) 10 mg IV ONCE PRN PRN Reason: Hypertension Sodium Chloride (Nacl 0.9% 1000 Ml) 1,000 mls @ 125 mls/hr IV DIRECT [facility] Morphine Sulfate (Morphine) 2 mg IV Q4H PRN PRN Reason: Pain, Moderate (4-6) Last Admin: 09/04/19 13:15 Dose: 2 mg Documented by: Nitroglycerin (Nitrostat) 0.4 mg SL .Q5MIN PRN PRN Reason: Chest Pain Ondansetron HCl (Zofran) 4 mg IV Q8H PRN PRN Reason: Nausea And Vomiting Review of Systems All systems: negative Physical Examination - Vital Signs Vital Signs: Vital Signs Temp Pulse Resp BP Pulse Ox 97.5 F L 87 18 167/109 100 09/03/19 17:13 09/03/19 17:13 09/03/19 17:13 09/03/19 17:13 09/03/19 17:13 - Constitutional General appearance: comfortable - EENT EENT: Present: PERRL, mucous membranes moist - Respiratory Respiratory: Present: chest non-tender, lungs clear - Cardiovascular Cardiovascular: Present: regular rate, normal S1, normal S2 Extremities: Present: no peripheral edema bilatateraly, no clubbing, cyanosis - Gastrointestinal Gastrointestinal: Present: normoactive bowel sounds - Integumentary Integumentary: Present: normal - Neurologic Cranial nerve examination: PERRL, EOMI, V1/V2/V3 grossly intact, face symmetric, tongue midline, intact Speech examination: intact Sensorimotor examination: intact Detailed motor examination: grossly full strength in Detailed sensory examination: intact Reflexes: 2+: ankle, bicep, knee, tricep - Level of Consciousness 1a. Level of Consciousness: alert/keenly responsive - LOC Questions 1b. LOC Questions: answers both correctly - LOC Command 1c. LOC Commands: performs tasks correctly - Best Gaze 2. Best Gaze: normal - Visual 3. Visual: no visual loss - Facial Palsy 4. Facial Palsy: normal symmetrical movement - Motor Arm 5a. Motor Arm Left: no drift 5b. Motor Arm Right: no drift - Motor Leg 6a. Motor Leg Left: no drift 6b. Motor Leg Right: no drift - Limb Ataxia 7. Limb Ataxia: absent - Sensory 8. Sensory: normal - Best Language 9. Best Language: no aphasia - Dysarthria 10. Dysarthria: normal - Extinction and Inattention 11. Extinction/Inattention: no abnormality - Scoring Total Score: 0 Stroke Severity: No Stroke Symptoms Results - Laboratory Findings CBC and BMP: 09/04/19 04:44 09/04/19 04:44 Abnormal Lab Findings: Abnormal Labs 09/03/19 09/03/19 09/03/19 17:25 17:42 17:52 MCV 83 L Garden % (Auto) Seg Neutrophils % 77.9 H APTT Potassium Carbon Dioxide Glucose POC Glucose 111 H 134 H Triglycerides Cholesterol LDL Cholesterol Direct HDL Cholesterol 09/03/19 09/03/19 09/04/19 17:52 19:31 04:44 MCV 83 L Garden % (Auto) 7.4 H Seg Neutrophils % APTT 24.0 L Potassium Carbon Dioxide 21 L Glucose 141 H POC Glucose Triglycerides Cholesterol LDL Cholesterol Direct HDL Cholesterol 09/04/19 04:44 MCV Garden % (Auto) Seg Neutrophils % APTT Potassium 3.4 L Carbon Dioxide Glucose 150 H POC Glucose Triglycerides 250 H Cholesterol 207 H LDL Cholesterol Direct 146 H HDL Cholesterol 31 L Assessment and Plan 1- This is 49 ys old male with long standing hx of HTN presented with complain of neck pain radiate to left side associated with vertigo with no diplopia or speech difficulty finding from hx and exam is suggestive of possible hypertensive emergency 2- Cervical disc disease contribute and add to his left side numbness and weakness 3- HTN poorly controlled ? due to pain 4- HLP LDl#[id number] PLAN 1- MRI brain to be done with ativan 2- MRI neck to be done with ativan 3- review echo and cardiac scan 4- neurontine 100 mg tid 5- Pt therapy 6- ASA 81 mg daily 7- Lipitor 40 mg daily 8- Pt therapy to see 9- DVT precaution will follow
[2019-09-04] MEDS: GABAPENTIN 100 MG CAP PO SCH ×2 (16:51→22:03)
[2019-09-04] MEDS: SODIUM CHLORIDE 0.9% 1000 ML 1,000 ML IV SCH (16:51)
[2019-09-05] MEDS: MORPHINE 2 MG/1 ML INJ IV PRN (04:24)
[2019-09-05] MEDS: GABAPENTIN 100 MG CAP PO SCH (05:19)
[2019-09-05] MEDS: SODIUM CHLORIDE 0.9% 1000 ML 1,000 ML IV SCH (07:41)
[2019-09-05 09:30] VITALS: BP 146/101
[2019-09-05] MEDS: ASPIRIN EC 325 MG TAB PO SCH (09:43)
[2019-09-05] MEDS: HEPARIN 5,000 UNIT/1 ML VIAL SUB-Q SCH (09:43)
--- NOTE | 2019-09-05 10:52 | Discharge Summary ---
Providers - Providers Date of Admission: 09/03/19 21:13 Date of discharge: 09/05/19 Attending physician: ASHER LYLES 09/03/19 Consult to Cardiac Rehabilitation [CONS] Routine Reason For Exam: Phase 1 09/03/19 22:20 Consult to Physician [CONS] Routine Comment: Consulting Provider: PATRICE PERERA Physician Instructions: Reason For Exam: R/O Tia 09/03/19 22:21 Consult to Physician [CONS] Routine Comment: Consulting Provider: JOSE JUAN ALMEIDA Physician Instructions: Reason For Exam: chest pain Primary care physician: AGUSTINA TAYLOR Hospitalization Reason for admission: cp, tia Condition: Good Hospital course: Patient is a 49-year-old male with a past medical history of hypertension and chronic pain who presents to ER with complaints of chest pain. Patient reportedly arrived with c/o dizziness and elevated blood pressure 167/109, and code stroke was called on his arrival. Patient was seen and evaluated by tele neurology. Patient also reported chest pain is 4 out of 10, without radiation and accompanied by nausea, sweats and dizziness. Pt was seen by cardiology in c onsultation and underwent stress test that was normal. Echo revealed mild LVH and EF 55-60%. No thrombotic or embolic source reported. Carotid dopplers negative. Neuro saw pt and believed that cervical disch dz likely cause of left sided numbness and weakness. MRI ordered but pt refused b/c claustrophobia. OP open MRI ordered. Stroke was not identified. D/C time 35 min Disposition: DC-01 TO HOME OR SELFCARE Time spent for discharge: 35 - Discharge Diagnoses (1) Accelerated hypertension Status: Acute (2) Dizziness Status: Acute (3) Vertigo Status: Acute (4) Hyperlipidemia Status: Chronic (5) Hypertension Status: Chronic (6) TIA (transient ischemic attack) Status: Suspected (7) Chest pain Status: Resolved Qualifiers: Chest pain type: unspecified Qualified Code(s): R07.9 - Chest pain, unspecified Core Measure Documentation - Palliative Care Palliative Care/ Comfort Measures: Not Applicable - Core Measures Any of the following diagnoses?: none Exam - Constitutional Vitals: Temp Pulse Resp BP Pulse Ox 97.4 F L 84 18 146/101 94 09/05/19 08:05 09/05/19 08:05 09/05/19 08:05 09/05/19 08:05 09/05/19 08:05 General appearance: Present: no acute distress, well-nourished - EENT Eyes: Present: PERRL ENT: hearing intact, clear oral mucosa - Neck Neck: Present: supple, normal ROM - Respiratory Respiratory effort: normal Respiratory: bilateral: CTA - Cardiovascular Heart Sounds: Present: S1 & S2. Absent: rub, click - Extremities Extremities: pulses symmetrical, No edema Peripheral Pulses: within normal limits - Abdominal General gastrointestinal: Present: soft, non-tender, non-distended, normal bowel sounds Male genitourinary: Present: normal - Integumentary Integumentary: Present: clear, warm, dry - Musculoskeletal Musculoskeletal: gait normal, strength equal bilaterally - Psychiatric Psychiatric: appropriate mood/affect, intact judgment & insight - Neurologic Neurologic: CNII-XII intact, moves all extremities Plan Activity: advance as tolerated Weight Bearing Status: Weight Bear as Tolerated Diet: low fat, low cholesterol, low salt Follow up with: AGUSTINA TAYLOR MD [Primary Care Provider] - 3-5 Days Prescriptions: Aspirin EC 325 mg PO QDAY #30 tablet carvediloL [Coreg] 1 tab PO BID #60 Fenofibrate Nanocrystallized [Fenofibrate] 1 tab PO DAILY #30 Cyclobenzaprine [Flexeril 10 MG TAB] 10 mg PO QDAY #10 Gabapentin 100 mg PO Q8HR #30 capsule hydroCHLOROthiazide [HCTZ] 1 tab PO DAILY #30 AtorvaSTATin [Lipitor] 40 mg PO QHS #30 tablet lisinopriL [Zestril TAB] 1 tab PO BID #30
[2019-09-05] MEDS ORDERED: LISINOPRIL 40 MG TAB PO SCH (22:00)
[2019-09-06] MEDS ORDERED: hydroCHLOROthiazide 25 MG TAB PO SCH (10:00)
== END 2019-09-05 12:35 | disposition home or self-care (01) ==
LOC: ED 15:40 → 4A 21:13
PROVIDERS: ADMIT Internal Medicine Geriatric Medicine; ATTEND Hospitalist
DX: G45.9 Transient cerebral ischemic attack, unspecified (principal); R07.89 Other chest pain; I10 Essential (primary) hypertension; G89.29 Other chronic pain; R42 Dizziness and giddiness; R11.2 Nausea with vomiting, unspecified; E78.5 Hyperlipidemia, unspecified; M50.90 Cervical disc disorder, unspecified, unspecified cervical region; M19.90 Unspecified osteoarthritis, unspecified site; Z79.82 Long term (current) use of aspirin; Z79.899 Other long term (current) drug therapy
CPT/HCPCS: 36415; 70450; 71045; 78452; 80048; 80053; 80061; 82550; 82553; 82962; 84484; 85025; 85610; 85670; 85730; 93005; 93010; 93017; 93306; 93880; 96361; 96372; 96374; 96375; 96376; 99291; A9270; A9502; G0378; J1644; J2060; J2270; J2785; J7030; 80320; G0480